=== PATIENT | female | born 1965 | race Caucasian/White ===

== ENCOUNTER 2022-10-15 06:53 | Day surgery (SDC) | payer OTHER ==
[~2022-10-15] VITALS: Ht 157.5 cm; Wt 57.7 kg
--- NOTE | ~2022-10-15 | OR ---
[facility] [address], [place] [address] Draft DATE OF OPERATION: 10/15/2022 SURGEON: Vasquez Perez MD PREOPERATIVE DIAGNOSIS: Chronic mastoid cavity infections, bilateral. POSTOPERATIVE DIAGNOSIS: Chronic mastoid cavity infections, bilateral. PROCEDURE: Bilateral exam of the ears under anesthesia with cleaning of infected mastoid cavities. ANESTHESIA: General LMA, ARIE, Anatoliy. PREOPERATIVE HISTORY: Leonor is a 57-year-old lady with chronic ear infections, multiple procedures, distant history of bilateral mastoid operations. She has not had a routine followup, in the office noted to have cerumen impactions. Skin totally filling the mastoid cavities, mainly left-sided, unable to clean these in the office and she was taken to the operating room for the above-mentioned procedures. PROCEDURE AND FINDINGS: After informed consent, the patient was taken to the operating room, placed in supine position where general LMA anesthesia was induced. The patient and procedure were verified. Right ear was examined with the operating microscope. There was a mild amount of squamous ceruminous debris which was cleaned. Mastoid cavity was inflamed. Granulation tissue was non-epithelialized. All debris was cleared. The left side was inspected. Mastoid cavity was completely filled with squamous ceruminous debris, copious amount. Layers of skin removed, lots of bleeding granulation tissue to middle ear mucosa was hypertrophic. There was no eardrum present. Basically all debris cleaned. Minimal bleeding stopped afterwards. The patient tolerated the procedure well, was awakened, extubated, and transported to recovery room in good condition. No complications. BLOOD LOSS: Minimal. PATIENT NAME: LEONOR BERRY OPERATIVE REPORT DATE OF : 61 REPORT #: [id number] PHYSICIAN: VASQUEZ PEREZ MD PCP: MAKENZIE POTTER MD REPORT IS CONFIDENTIAL AND NOT TO BE RELEASED WITHOUT AUTHORIZATION [facility] [address] [facility] [place], [place] [address] Draft SPECIMEN: Left mastoid debris to pathology for permanent sections. DRAINS: None. COMPLICATIONS: None. Vasquez Perez MD GC/MODL /[id number] Copies: ~ PATIENT NAME: LEONOR BERRY OPERATIVE REPORT DATE OF : 61 REPORT #: [id number] PHYSICIAN: VASQUEZ PEREZ MD PCP: MAKENZIE POTTER MD REPORT IS CONFIDENTIAL AND NOT TO BE RELEASED WITHOUT AUTHORIZATION
[~2022-10-15 06:53] MED LIST: NEOMYCIN-POLYMY10 M1 OTIC; SUDAFED 12 HOU120 MG PO; TYLENOL325 M1 PO
--- NOTE | 2022-10-15 10:02 | NUR ---
10/15/22 1002 Sheets,Estefani 0905 PT ARRIVED TO PACU ON RA, PT AWAKE AND DENIES CONCERNS. VSS. PT SITTING IN HIGH FOWLERS AND LOOKING AROUND ROOM. PLAN OF CARE DISCUSSED.
--- NOTE | 2022-10-15 10:17 | NUR ---
1010: PT ARRIVES TO DS RM 5 VIA STRETCHER FROM PACU AWAKE. PT DENIES ANY NAUSEA OR PAIN ON ARRIVAL. DC CRITERIA EXPLAINED TO PT. PT REQUESTS SODA. CALL LIGHT WITHIN REACH.
--- NOTE | 2022-10-15 11:19 | NUR ---
1100: PT USES CALL LIGHT TO NOTIFY RN OF URGE TO VOID. PT UP TO BATHROOM WITH RN ASSIST, STEADY GAIT AND DENIES ANY DIZZINESS. PT ABLE TO VOID QS WITH NO PROBLEMS. PT BACK TO DS RM 5 AND VS OBTAINED, PT DRESSES SELF AND THIS RN CONTACTS MEDICAL TRANSPORT FOR SAFE RIDE HOME. 1115: DC INSTRUCTIONS PRESENTED VERBALLY AND WRITTEN TO PT. PT AWARE OF SCRIPT IN DC FOLDER THAT NEEDS TO BE FILLED AT PHARMACY. 1125: [facility] CALLS DAY SURGERY WITH ETA OF [id number], PT NOTIFIED.
--- NOTE | 2022-10-15 11:49 | NUR ---
1130: MEDICAL TRANSPORT CALLS AND STATES THEY ARE HERE IN FRONT OF MAIN ENTRANCE TO HOSPITAL. IV REMOVED WITH COBAN PRESSURE DRESSING PLACED AND ENCOURAGED TO REMOVED ONCE HOME. PT TRANSFERRED FROM DS RM 5 VIA WC TO MEDICAL TRANSPORT TO HOME.
== END 2022-10-15 11:35 | disposition home or self-care (01) ==
LOC: DS 06:53 → OPS 06:53 → DS 07:30 → OPS 07:30 → DS 09:00 → OPS 11:35
PROVIDERS: ATTEND Otolaryngology
DX: H70.13 Chronic mastoiditis, bilateral (principal)
CPT/HCPCS: J2001; J2405; J2704; J3010; J7121